=== PATIENT | female | born 1940 | race Two or more races ===

== ENCOUNTER 2021-02-12 17:48 | Inpatient (IN) | payer OTHER ==
[~2021-02-12] VITALS: Ht 152.4 cm; Wt 43.5 kg
[2021-02-12 19:30] LABS: Basophils # (auto) 0 10 ^3/uL (0-0.2); Basophils % (auto) 0.4 % (0.0-2.0); Eosinophils # (auto) 0.1 10 ^3/uL (0-0.8); Eosinophils % (auto) 0.8 % (0.0-7.0); Hematocrit 40.7 % (36.0-46.0); Hemoglobin 13.8 g/dL (12.2-16.2); Lymphocytes # (auto) 1.5 10 ^3/uL (0.4-5.4); Lymphocytes % (auto) 15.5 % (10.0-50.0); Mean Corpuscular Hemoglobin 30.8 pg (28.0-32.0); Mean Corpuscular Hgb Conc. 33.8 g/dL (32.0-36.0); Mean Corpuscular Volume 91.3 fL (80.0-100.0); Monocytes # (auto) 0.7 10 ^3/uL (0-1.3); Monocytes % (auto) 7.5 % (0.0-12.0); Neutrophils # (auto) 7.5 10 ^3/uL (1.6-8.6); Neutrophils % (auto) 75.8 % (37.0-80.0); Nucleated Red Blood Cells % 0.2 %; Platelet Count (auto) 203 10^3/uL (140-450); Red Blood Cells 4.46 10^6/uL (4.0-5.20); Red Cell Distribution Width 13.9 % (11.8-14.3); White Blood Cell 9.9 10^3/uL (4.4-10.8)
[2021-02-12 19:55] LABS: Albumin 3.1 g/dL (3.4-5.0); Calcium 8.7 mg/dL (8.5-10.1); Potassium 3.9 mmol/L (3.5-5.1)
[2021-02-12 19:58] LABS: BUN/Creatinine Ratio 22.4; Bilirubin, Total 0.4 mg/dL (0.2-1.0); Total Protein 6.4 g/dL (6.4-8.2)
[2021-02-12 22:13] LABS: Urine Bacteria NONE SEEN /hpf (None Seen); Urine Blood Negative /uL (Negative); Urine Hyaline Cast FEW /lpf (0 - 2); Urine Specific Gravity 1.011 (1.001-1.035); Urine WBC 1 /hpf (0 - 5)
[2021-02-12 22:37] LABS: Amphetamine Screen, Urine NEGATIVE (NEGATIVE); Barbiturate Scree,Urine NEGATIVE (NEGATIVE); Benzodiazephine Screen, Urine NEGATIVE (NEGATIVE); Cannabinoid Screen, Urine NEGATIVE (NEGATIVE); Cocaine Screen, Urine NEGATIVE (NEGATIVE); Opiate Scree,Urine NEGATIVE (NEGATIVE); Phencyclidine Screen, Urine NEGATIVE (NEGATIVE)
[2021-02-13 01:18] LABS: INR 1.06 (0.9-1.15); Partial Thromboplastin Time 25.4 sec (23.0-31.2)
[2021-02-13 01:48] LABS: Magnesium 2.2 mg/dL (1.6-2.6)
[2021-02-13] MEDS ORDERED: HYDROcodone-ACET 5/325MG TAB PO PRN (02:00)
[2021-02-13] MEDS ORDERED: NITROGLYCERIN 0.4 MG SL TAB SL PRN (02:00)
[2021-02-13] MEDS ORDERED: MORPHINE SULF INJ 2 MG/ML SYRINGE 1ML IV PRN (02:00)
[2021-02-13] MEDS ORDERED: MORPHINE SULFATE 4 MG/ML SYR/VIAL IV PRN (02:00)
[2021-02-13] MEDS ORDERED: D5W/SOD CHL 0.45% 1,000 ML IV SCH (02:00)
[2021-02-13] MEDS ORDERED: ACETAMINOPHEN 325 MG TAB PO PRN (02:00)
[2021-02-13] MEDS ORDERED: ONDANSETRON HCL 4 MG/2 ML VIAL IV PRN (02:00)
[2021-02-13] MEDS ORDERED: DOCUSATE SOD 100 MG CAP PO PRN (02:00)
[2021-02-13 06:48] LABS: Basophils # (auto) 0.1 10 ^3/uL (0-0.2); Basophils % (auto) 0.7 % (0.0-2.0); Eosinophils # (auto) 0.1 10 ^3/uL (0-0.8); Eosinophils % (auto) 1.6 % (0.0-7.0); Hematocrit 36.4 % (36.0-46.0); Hemoglobin 12.7 g/dL (12.2-16.2); Lymphocytes # (auto) 2.3 10 ^3/uL (0.4-5.4); Lymphocytes % (auto) 29.4 % (10.0-50.0); Mean Corpuscular Hemoglobin 31.2 pg (28.0-32.0); Mean Corpuscular Hgb Conc. 34.9 g/dL (32.0-36.0); Mean Corpuscular Volume 89.4 fL (80.0-100.0); Monocytes # (auto) 0.8 10 ^3/uL (0-1.3); Monocytes % (auto) 10.2 % (0.0-12.0); Neutrophils # (auto) 4.5 10 ^3/uL (1.6-8.6); Neutrophils % (auto) 58.1 % (37.0-80.0); Nucleated Red Blood Cells % 0.1 %; Platelet Count (auto) 201 10^3/uL (140-450); Red Blood Cells 4.08 10^6/uL (4.0-5.20); Red Cell Distribution Width 13.6 % (11.8-14.3); White Blood Cell 7.7 10^3/uL (4.4-10.8)
[2021-02-13 07:05] LABS: Potassium 3.6 mmol/L (3.5-5.1)
[2021-02-13 07:08] LABS: BUN/Creatinine Ratio 22.7; Bilirubin, Total 0.3 mg/dL (0.2-1.0); Total Protein 6.6 g/dL (6.4-8.2)
[2021-02-13] MEDS ORDERED: LORazepam 2MG/ML-1ML VIAL IV PRN (08:45)
[2021-02-13 09:13] LABS: Cholesterol 186 mg/dL (< 200); HDL Cholesterol 52 mg/dL (40-59); LDL Cholesterol 116 mg/dL (< 100); Triglycerides 79 mg/dL (< 150)
[2021-02-13] MEDS ORDERED: MULTIPLE VITAMIN TAB PO SCH (10:00)
[2021-02-13] MEDS ORDERED: ASPirin 81 mg TAB PO SCH (10:00)
[2021-02-13] MEDS ORDERED: ZINC SULFATE 220mg CAP or TAB PO SCH (10:00)
[2021-02-13] MEDS ORDERED: ASCORBIC ACID 500 MG TAB PO SCH (10:00)
[2021-02-13] MEDS ORDERED: ENOXAPARIN SOD 30 MG/0.3 ML SYRINGE SC SCH (10:00)
[2021-02-13] MEDS ORDERED: FAMOTIDINE 20 MG TAB PO SCH ×2 (10:00)
[2021-02-13] MEDS ORDERED: ASPI1CHW15 PO (14:59)
[2021-02-13] MEDS ORDERED: FAMO-12 PO (14:59)
[2021-02-13] MEDS ORDERED: ATOR20TA50 PO (14:59)
[2021-02-13 16:41] LABS: Folate (Folic Acid) 13.85 ng/mL (5.38-24)
[2021-02-13 17:23] VITALS: BP 128/68
[2021-02-13] MEDS ORDERED: ATORVASTATIN 20 MG TAB PO SCH (22:00)
== END 2021-02-13 17:29 | disposition home or self-care (01) | DRG 316 ==
LOC: ER 17:48 → EDBD 17:48 → TELE 17:49
PROVIDERS: ADMIT Nurse Practitioner Family; ATTEND Internal Medicine
DX: I95.9 Hypotension, unspecified (principal); Z20.822 Contact with and (suspected) exposure to COVID-19; G30.9 Alzheimer's disease, unspecified; F02.80 Dementia in other diseases classified elsewhere, unspecified severity, without behavioral disturbance, psychotic disturbance, mood disturbance, and anxiety; F01.50 Vascular dementia, unspecified severity, without behavioral disturbance, psychotic disturbance, mood disturbance, and anxiety; E78.5 Hyperlipidemia, unspecified; Z79.899 Other long term (current) drug therapy; Z83.3 Family history of diabetes mellitus; Z86.73 Personal history of transient ischemic attack (TIA), and cerebral infarction without residual deficits; Z79.82 Long term (current) use of aspirin
CPT/HCPCS: 36415; 70450; 70551; 71045; 80053; 80061; 80307; 80320; 81001; 82607; 82746; 83605; 83735; 84443; 84484; 85025; 85379; 85610; 85730; 87040; 87086; 87426; 93306; 93886; 93970; 96360; G0378